=== PATIENT | female | born 1980 | race Caucasian/White ===

== ENCOUNTER → 2016-08-13 | Outpatient (CLI) | payer OTHER ==
--- NOTE | 2016-08-14 08:23 | KCIC ---
MR LUMBAR SPINE HISTORY:Reason For StudyReason: PERSISTENT RADICULAR SYMPTOMS / Spl. Instructions: / History: Chronic LBP with Rt radiculopathy, worse since June 2016 Technique: Sagittal T2, sagittal STIR, and sagittal T1-weighted images were obtained. Additional axial T1 and T2 weighted imaging was also performed. FINDINGS: There is straightening of the lumbar lordosis. There is no compression fracture. Bone marrow signal is normal. The conus terminates normally at the level of L2. Visualized intra-abdominal contents are within normal limits. At L5-S1 there is moderate disc height loss and a broad-based disc protrusion that causes some mass effect upon the right S1 nerve in the lateral recess. The remaining intervertebral disc levels are well maintained. Impression: - Disc extrusion noted at L5-S1 causing mass effect upon the right S1 nerve. Correlate for right S1 radiculopathy. Electronically signed by: Jason Jones (Aug 14, 2016 08:22:42)
--- NOTE | 2016-08-14 10:20 | KCIC ---
PROCEDURE MR of the right wrist HISTORY Right wrist pain. History of fracture in March 2016. TECHNIQUE Standard noncontrast images are obtained. COMPARISON None FINDINGS There is slight irregularity of the triangular fibrocartilage at the radial attachment, coronal series 9, image 10. However, no focal defect or through and through rupture is identified. Mild signal within the extensor carpi ulnaris tendon compatible with mild tendinosis. No subluxation of the tendon. Only minimal tendon sheath fluid. The other extensor compartments are intact. Flexor tendons are intact. Median nerve unremarkable. No evidence of scapholunate ligament tear or lunotriquetral ligament tear. Note there is slight dorsal tilt of the lunate bone. No significant joint effusion. There is some mild linear signal irregularity involving the distal radius, greatest along the growth plate scar. This presumably represents a fracture as described in the history. No evidence of acute bone marrow edema or acute fracture at the wrist. IMPRESSION 1. Mild extensor carpi ulnaris tendinosis. 2. Slight irregularity of the radial attachment of the triangular fibrocartilage, of questionable significance. No definite tear or rupture. Electronically signed by: Doron Neumann MD (Aug 14, 2016 10:19:14)
== END | disposition home or self-care (01) ==
LOC: KCIC MRI 16:49
PROVIDERS: ATTEND Family Medicine
DX: M51.27 Other intervertebral disc displacement, lumbosacral region (principal); M54.18 Radiculopathy, sacral and sacrococcygeal region; R29.890 Loss of height; M77.8 Other enthesopathies, not elsewhere classified; Z87.81 Personal history of (healed) traumatic fracture
CPT/HCPCS: 72148; 73221

== ENCOUNTER → 2017-11-09 | Outpatient (CLI) | payer OTHER ==
[2017-11-09] MEDS: GADOBUTROL 7.5 MMOL/7.5 ML VIAL IV (16:06)
== END | disposition home or self-care (01) ==
LOC: KCIC MRI 15:07
DX: R42 Dizziness and giddiness (principal); Z87.81 Personal history of (healed) traumatic fracture
CPT/HCPCS: 70553; A9585

== ENCOUNTER → 2019-06-09 | Outpatient (CLI) | payer MEDICAID ==
--- NOTE | 2019-06-09 15:49 | KCIC ---
MRI Lumbar Spine without contrast History: Chronic low back pain, intermittent right radiculopathy Technique: Multiplanar, multi sequential noncontrast MR imaging was performed of the lumbar spine. Comparison: 08/13/2016 Findings: There is again transitional anatomy. Most inferior fully formed intervertebral disc space is considered L5-S1, incompletely formed intervertebral disc space at what is considered S1-S2. Lumbar vertebral body stature is maintained. AP alignment is unchanged, within normal limits. Conus terminates at what is considered the inferior aspect of L2. There is a small hemangioma of what is considered T12. There is also stable small focus of marrow signal change of the right L2 vertebral body, probably a small atypical hemangioma.. There is no significant marrow edema. There is again mild to moderate narrowing greater posteriorly of the L5-S1 intervertebral disc space. L1-2, L2-3: These levels were not included on the axial images. Neural foramina and spinal canal are adequate. L3-L4: Neural foramina and spinal canal are adequate. There is mild facet hypertrophic change, buckling of the ligamentum flavum, prominence of posterior epidural fat. L4-L5: There is bilateral facet degenerative change and minimal buckling of the ligamentum flavum. Spinal canal and neural foramina are adequate. L5-S1: There is again disc osteophyte complex and broad protrusion more eccentric to the right lateral recess with contact of the descending right S1 nerve root, similar [id number] narrowing of the far lateral recess in combination with buckling of the ligamentum flavum. There is very mild narrowing of the inferior right neural foramen by disc osteophyte complex, left neural foramen overall adequate. There is mild bilateral facet hypertrophic change. Impression: 1. Findings are similar comparing with the May 2017 exam. Most inferior fully formed intervertebral disc space is again considered L5-S1. There is again shallow broad protrusion at what is considered L5-S1 near the descending right S1 nerve root. Electronically signed by: Bay Carranza MD (06/09/2019 3:46 PM) [id number]
== END | disposition home or self-care (01) ==
LOC: KCIC MRI 14:41
PROVIDERS: ATTEND Registered Nurse
DX: M51.17 Intervertebral disc disorders with radiculopathy, lumbosacral region (principal); M48.07 Spinal stenosis, lumbosacral region; M25.78 Osteophyte, vertebrae
CPT/HCPCS: 72148

== ENCOUNTER → 2021-04-28 | Outpatient (CLI) | payer MEDICAID ==
--- NOTE | 2021-04-30 17:18 | RESP ---
DATE OF SERVICE: 04/28/2021 PULMONARY FUNCTION TEST Referred by Gabbi Fatima APRN The patient underwent PFTs at [facility]. The patient's FVC was 3.48, which is 91% predicted. FEV1 was 2.8, which is 90% predicted. The FEV1/FVC ratio was normal. No bronchodilators given. Lung volumes showed a total lung capacity of 146% predicted and residual volume of 268% predicted. Diffusion capacity 99% predicted. IMPRESSION: 1. No significant obstructive airway disease. 2. No bronchodilators given. 3. Lung volumes consistent with air trapping. 4. Normal diffusion capacity. DYLAN/PHAM DR: Phoebe TID: [id number] CC: Gabbi Fatima APRN
== END ==
LOC: PF 10:19
PROVIDERS: ATTEND Nurse Practitioner Adult Health
DX: R06.02 Shortness of breath (principal)
CPT/HCPCS: 94010; 94726; 94729